=== PATIENT | male | born 1965 | race Caucasian/White ===

== ENCOUNTER 2016-09-23 17:40 | Emergency (ER) | payer BC ==
[2016-09-23] MEDS ORDERED: DIPHTH,PERTUSS(ACELL),TET VAC 0.5 ML VIAL IM ONE ×2 (17:46→17:52)
[2016-09-23] MEDS ORDERED: NORMAL SALINE 1,000 ML IV ONE ×2 (17:46→17:50)
[2016-09-23 17:55] LABS: Carboxyhemoglobin % 1.7 % (0.5-1.5); Hematocrit 37.9 % (42.0-52.0); Hemoglobin 13.3 gm/dL (13.5-18.0); Mean Cell Volume 89.4 fl (78-100); Mean Corpuscular Hemoglobin 31.4 pg (27-31); Mean Corpuscular Hgb Conc 35.1 g/dl (32-36); Mean Platelet Volume 9.4 fl (6.0-9.5); Methemoglobin % 0.6 % (0.41-1.15); Neutrophil # 3.5 K/mm3 (1.3-6.0); Neutrophil % 51.4 % (42-75.0); Platelet Count 214 K/mm3 (150-450); Red Blood Count 4.24 M/mm3 (4.7-6.0); Red Cell Distribution Width 11.9 % (11.5-14.0); White Blood Count 6.8 K/mm3 (4.0-10.5)
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
[2016-09-23 18:14] LABS: Albumin * 3.6 gm/dl (3.4-5.0); Anion Gap 13.7 mmol/L (6.8-13.8); BUN/Creatinine Ratio 12.1 (9.0-21.6); Bilirubin, Total 0.3 mg/dL (0.0-1.1); Ca. Corrected For Albumin 8.4 mg/dL (8.4-10.2); Calcium * 8.4 mg/dL (7.9-10.9); Potassium 3.7 mmol/L (3.4-4.6); Total Protein 6.2 gm/dL (6.2-8.2)
--- OUTSIDE RECORDS SUMMARY | 2016-09-23 18:18 | XMS REPORT | Continuity of Care Document ---
:1965 Author Organization [facility] ([facility]) Address [address] [place] [address] Phone [phone] Care Team Providers Name Role Phone Unavailable Primary Care Provider Unavailable Source Comments This disclosure is being made pursuant to the Care Everywhere program, applicable federal and state laws, and may not contain all informaitonavailable regarding this patient.[facility] ([facility]) Active Allergies and Adverse Reactions Not on File Current Medications Not on file Active Problems Not on file Social History Tobacco Use Types Packs/Day Years Used Date Never Assessed Plan of Care Health Maintenance Due Date Last Done Comments HCV Screening 1965 Hepatitis B Vaccine (1 of 3 - Primary Series) 1965 Tdap Vaccine 12/22/1974 Lipid Disorder Screening 12/22/1981 MMR Vaccine 12/22/1981 Td Vaccine 12/22/1981 Colonoscopy 12/22/2013 Prostate Cancer Screening 12/22/2013 Influenza Vaccine: Seasonal (#1) 03/06/2016 Results from Last 3 Months Not on file
[2016-09-23 18:19] LABS: Troponin I 0.796 ng/ml (0.00-0.10)
[2016-09-23 18:41] LABS: T4 Free * 0.91 ng/dL (0.76-1.46); TSH * 2.248 uIU/mL (0.358-3.74)
[2016-09-23] MEDS ORDERED: ASPIRIN 81 MG TAB.CHEW PO ONE (19:28)
[2016-09-23] MEDS ORDERED: CLOPIDOGREL BISULFATE 75 MG TABLET PO STA (19:28)
[2016-09-23] MEDS ORDERED: HEPARIN SODIUM,PORCINE 5,000 UNITS/ML VIAL IV ONE (19:28)
[2016-09-23] MEDS ORDERED: METOPROLOL TARTRATE 1 MG/ML AMPUL IV SCH (19:30)
[2016-09-23] MEDS ORDERED: HEPARIN SODIUM,PORCINE 5,000 UNITS/ML VIAL ONE (19:39)
[2016-09-23] MEDS ORDERED: METOPROLOL TARTRATE 1 MG/ML AMPUL IV ONE ×2 (19:39→20:17)
[2016-09-23] MEDS ORDERED: HEPARIN SODIUM,PORCINE/D5W 25,000 UNITS/500 ML BAG IV ONE (19:40)
[2016-09-23] MEDS ORDERED: CLOPIDOGREL BISULFATE 75 MG TABLET ONE (19:40)
[2016-09-23] MEDS ORDERED: ASPIRIN 81 MG TAB.CHEW ONE (19:40)
[2016-09-23] MEDS ORDERED: HEPARIN SODIUM,PORCINE/D5W 25,000 UNITS/500 ML BAG IV PRN (20:28)
[2016-09-23] MEDS ORDERED: HEPARIN SODIUM,PORCINE/D5W 25,000 UNITS/500 ML BAG IV SCH (20:30)
[2016-09-23 20:45] LABS: Prothrombin Time (Patient) 11.4 Seconds (9.4-11.4)
[2016-09-23 20:57] VITALS: BP 114/62
[2016-09-23 21:39] LABS: INR 1.1 INR (0.90-1.10); Partial Thrombolplastin Time 22.3 Seconds (24-32)
== END 2016-09-23 21:13 | disposition short-term general hospital (02) ==
LOC: ER 17:40
DX: I21.4 Non-ST elevation (NSTEMI) myocardial infarction (principal); T24.222A Burn of second degree of left knee, initial encounter; T24.221A Burn of second degree of right knee, initial encounter; T24.212A Burn of second degree of left thigh, initial encounter; T24.211A Burn of second degree of right thigh, initial encounter; T23.202A Burn of second degree of left hand, unspecified site, initial encounter; T23.201A Burn of second degree of right hand, unspecified site, initial encounter; T79.8XXA Other early complications of trauma, initial encounter; X01 Exposure to uncontrolled fire, not in building or structure; Y92.007 Garden or yard of unspecified non-institutional (private) residence as the place of occurrence of the external cause; Z23 Encounter for immunization